=== PATIENT | female | born 2000 | race Caucasian/White ===

== ENCOUNTER 2023-04-09 11:06 | Emergency (ER) | payer BC ==
[2023-04-09] MEDS ORDERED: Ibuprofen 800 MG TAB ONE (11:34)
[2023-04-09] MEDS ORDERED: Ibuprofen 200 MG TAB ONE (11:36)
[2023-04-09] MEDS ORDERED: Cyclobenzaprine 10 MG TAB ONE (12:25)
[2023-04-09] MEDS ORDERED: predniSONE 20 MG TAB ONE (12:25)
== END 2023-04-09 13:41 | disposition home or self-care (01) ==
LOC: ERS 11:06
DX: M54.2 Cervicalgia (principal)
CPT/HCPCS: 99283; J7512

== ENCOUNTER 2023-08-05 06:55 | Day surgery (SDC) | payer BC ==
[2023-08-04 13:41] VITALS: BMI 25.0
[2023-08-05 08:53] LABS: Hematocrit 37.9 % (36.0-47.0)
[2023-08-05] MEDS ORDERED: Lidocaine 4% Topical Sol 50 ML BOT ONE (08:58)
[2023-08-05 09:06] LABS: BHCG - Serum Negative (NEGATIVE); Pregs Control Background? CLEAR/WHITE (CLR/WHITE); Pregs Control Bar Appear? YES (CONTROL BAR)
[2023-08-05] MEDS ORDERED: PROPOFOL 20 ML ONE (09:36)
[2023-08-05] MEDS ORDERED: fentaNYL PF 100 MCG/2 ML SYRINGE ONE (09:36)
[2023-08-05] MEDS ORDERED: Dexamethasone 20 MG/5 ML VIAL ONE (09:38)
[2023-08-05] MEDS ORDERED: Ondansetron PF 4 MG/2 ML Vial ONE (09:38)
[2023-08-05] MEDS ORDERED: Ferric Subsulfate 8 ML TOPICAL SOLN ONE (10:00)
[2023-08-05] MEDS ORDERED: Hydrocodone-Acetamin 15 ML UDCUP ONE (11:01)
== END 2023-08-05 11:35 | disposition home or self-care (01) ==
LOC: SDC 06:55
PROVIDERS: ATTEND Otolaryngology Plastic Surgery within the Head & Neck
PROC: 0CTQXZZ Resection of Adenoids, External Approach (ICD-10-PCS; principal; 2023-08-05)
PROC: 0CTPXZZ Resection of Tonsils, External Approach (ICD-10-PCS; principal; 2023-08-05)
DX: J35.3 Hypertrophy of tonsils with hypertrophy of adenoids (principal); J34.2 Deviated nasal septum; Z79.899 Other long term (current) drug therapy
CPT/HCPCS: 84703; 85014; 88304; J1100; J2405; J2704